=== PATIENT | male | born 1970 | race Two or more races ===

== ENCOUNTER 2021-06-13 13:19 | Inpatient (IN) | payer OTHER ==
[2021-06-13] MEDS ORDERED: BISMUTH SUBSALICYLATE 262 MG/15 ML BTL PO PRN (14:15)
[2021-06-13] MEDS ORDERED: ACETAMINOPHEN 325 MG TABLET (FP) PO PRN ×2 (14:15)
[2021-06-13] MEDS ORDERED: MAGNESIUM HYDROX 2400MG/30ML ORAL SUSPENSION 30 ML CUP PO PRN (14:15)
[2021-06-13] MEDS ORDERED: ONDANSETRON *ODT* 4 MG TABLET SL PRN (14:15)
[2021-06-13] MEDS ORDERED: MAGNESIUM CITRATE 300 ML BOTTLE PO PRN (14:15)
[2021-06-13] MEDS ORDERED: MENTHOL/PHENOL 1 EACH UD MM PRN (14:15)
[2021-06-13] MEDS ORDERED: chlordiazePOXIDE HCL 25 MG CAPSULE PO PRN (14:15)
[2021-06-13] MEDS ORDERED: MAG HYDROX/AL HYDROX/SIMETH 30 ML UNIT-DOSE CUP PO PRN (14:15)
[2021-06-13] MEDS ORDERED: NICOTINE 10 MG CARTRIDGE (INHALER) IH PRN (14:15)
[2021-06-13] MEDS ORDERED: IBUPROFEN 400 MG TABLET (FP) PO PRN (14:15)
[2021-06-13 14:24] VITALS: BMI 44.1
[2021-06-13] MEDS: chlordiazePOXIDE HCL 25 MG CAPSULE PO SCH ×2 (17:28→22:29)
[2021-06-13] MEDS: hydrOXYzine PAMOATE 25 MG CAPSULE (FP) PO SCH ×2 (17:28→22:27)
[2021-06-13] MEDS: THIAMINE HCL 100 MG TABLET (FP) PO SCH (22:27)
[2021-06-13] MEDS: MELATONIN 5 MG TABLETS PO SCH (22:27)
[2021-06-14] MEDS: hydrOXYzine PAMOATE 25 MG CAPSULE (FP) PO SCH ×5 (05:47→22:03)
[2021-06-14] MEDS: chlordiazePOXIDE HCL 25 MG CAPSULE PO SCH ×4 (05:48→22:03)
[2021-06-14 09:34] LABS: HEMATOCRIT 40.9 % (35.4-49); HEMOGLOBIN 13.7 GM/dL (11.7-16.9); MCH 29.7 pg (25.7-33.7); MCHC 33.4 g/dl (32.0-35.9); MEAN CELL VOLUME 88.7 fl (80-96); MEAN PLT VOLUME 8.1 fl (7.5-11.1); PLATELET COUNT 298 10^3/uL (134-434); RBC 4.61 M/mm3 (4.00-5.60); RDW 13.6 % (11.9-15.9); WHITE BLOOD COUNT 6.9 K/mm3 (4.0-10.0)
[2021-06-14] MEDS: PRENATAL VITAMINS W/ FOLIC ACID TABLET (FP) PO SCH (10:19)
[2021-06-14 10:34] LABS: ALBUMIN 3.2 g/dl (3.4-5.0); CALCIUM 9.3 mg/dL (8.5-10.1)
[2021-06-14 10:35] LABS: BLOOD UREA NITROGEN 12.3 mg/dL (7-18)
[2021-06-14 10:37] LABS: CREATININE 0.9 mg/dL (0.55-1.3)
[2021-06-14 10:39] LABS: TOT PROT 6.6 g/dl (6.4-8.2)
[2021-06-14] MEDS: metFORMIN HCL 500 MG TABLET (FP) PO SCH ×2 (11:40→17:20)
[2021-06-14] MEDS: glipiZIDE 5 MG TABLET (FP) PO SCH (11:40)
[2021-06-14] MEDS: ASPIRIN 81 MG CHEWABLE TABLETS PO SCH (11:40)
[2021-06-14] MEDS ORDERED: PATIENT'S OWN MEDICATION (NON-FORMULARY) (Semaglutide [Ozempic] 1 MG/0.75 ML Pen.Injctr) SQ SCH (12:00)
[2021-06-14] MEDS ORDERED: SEMAGLUTIDE SQ SCH (13:06)
[2021-06-14] MEDS ORDERED: [UNRECOGNIZED DRUG - OTHER] SQ SCH (13:06)
[2021-06-14] MEDS ORDERED: NIFEdipine E.R 60 MG TABLET PO SCH (13:15)
[2021-06-14] MEDS: NIFEdipine E.R 60 MG TABLET PO SCH (17:24)
[2021-06-14] MEDS: MELATONIN 5 MG TABLETS PO SCH (22:03)
[2021-06-14] MEDS: THIAMINE HCL 100 MG TABLET (FP) PO SCH (22:03)
[2021-06-15] MEDS: chlordiazePOXIDE HCL 25 MG CAPSULE PO SCH ×4 (05:59→22:02)
[2021-06-15] MEDS: hydrOXYzine PAMOATE 25 MG CAPSULE (FP) PO SCH ×5 (05:59→22:03)
[2021-06-15] MEDS: glipiZIDE 5 MG TABLET (FP) PO SCH (06:00)
[2021-06-15] MEDS: metFORMIN HCL 500 MG TABLET (FP) PO SCH ×2 (06:00→18:45)
[2021-06-15] MEDS: ASPIRIN 81 MG CHEWABLE TABLETS PO SCH (10:25)
[2021-06-15] MEDS: NIFEdipine E.R 60 MG TABLET PO SCH (10:25)
[2021-06-15] MEDS: PRENATAL VITAMINS W/ FOLIC ACID TABLET (FP) PO SCH (10:25)
[2021-06-15] MEDS: THIAMINE HCL 100 MG TABLET (FP) PO SCH (22:03)
[2021-06-15] MEDS: METHOCARBAMOL 500 MG TABLET PO PRN (22:03)
[2021-06-15] MEDS: MELATONIN 5 MG TABLETS PO SCH (22:03)
[2021-06-16] MEDS ORDERED: chlordiazePOXIDE HCL 10 MG CAPSULE PO PRN
[2021-06-16] MEDS: chlordiazePOXIDE HCL 10 MG CAPSULE PO SCH ×4 (05:56→22:14)
[2021-06-16] MEDS: hydrOXYzine PAMOATE 25 MG CAPSULE (FP) PO SCH ×5 (05:56→22:15)
[2021-06-16] MEDS: metFORMIN HCL 500 MG TABLET (FP) PO SCH ×2 (07:05→18:23)
[2021-06-16] MEDS: glipiZIDE 5 MG TABLET (FP) PO SCH (08:15)
[2021-06-16] MEDS: ASPIRIN 81 MG CHEWABLE TABLETS PO SCH (10:24)
[2021-06-16] MEDS: PRENATAL VITAMINS W/ FOLIC ACID TABLET (FP) PO SCH (10:25)
[2021-06-16] MEDS: NIFEdipine E.R 60 MG TABLET PO SCH (10:28)
[2021-06-16] MEDS ORDERED: SENNOSIDES 8.6MG TABLET (FP) PO PRN (12:25)
[2021-06-16] MEDS: INSULIN SLIDING SCALE (NOVOLOG) 1 VIAL SQ SCH (17:17)
[2021-06-16] MEDS: METHOCARBAMOL 500 MG TABLET PO PRN (22:14)
[2021-06-16] MEDS: MELATONIN 5 MG TABLETS PO SCH (22:14)
[2021-06-17] MEDS: THIAMINE HCL 100 MG TABLET (FP) PO SCH ×2 (00:57→22:05)
[2021-06-17] MEDS: chlordiazePOXIDE HCL 10 MG CAPSULE PO SCH ×2 (06:03→17:39)
[2021-06-17] MEDS: metFORMIN HCL 500 MG TABLET (FP) PO SCH ×2 (06:07→17:15)
[2021-06-17] MEDS: glipiZIDE 5 MG TABLET (FP) PO SCH (06:07)
[2021-06-17] MEDS: hydrOXYzine PAMOATE 25 MG CAPSULE (FP) PO SCH ×5 (06:07→22:05)
[2021-06-17] MEDS: INSULIN SLIDING SCALE (NOVOLOG) 1 VIAL SQ SCH ×2 (07:14→17:17)
[2021-06-17] MEDS: ASPIRIN 81 MG CHEWABLE TABLETS PO SCH (10:56)
[2021-06-17] MEDS: PRENATAL VITAMINS W/ FOLIC ACID TABLET (FP) PO SCH (10:56)
[2021-06-17] MEDS: NIFEdipine E.R 60 MG TABLET PO SCH (10:57)
[2021-06-17] MEDS: MELATONIN 5 MG TABLETS PO SCH (22:05)
[2021-06-17] MEDS: METHOCARBAMOL 500 MG TABLET PO PRN (22:05)
[2021-06-18] MEDS ORDERED: chlordiazePOXIDE HCL 10 MG CAPSULE PO ONE (05:00)
[2021-06-18] MEDS: metFORMIN HCL 500 MG TABLET (FP) PO SCH (06:01)
[2021-06-18] MEDS: glipiZIDE 5 MG TABLET (FP) PO SCH (06:01)
[2021-06-18] MEDS: hydrOXYzine PAMOATE 25 MG CAPSULE (FP) PO SCH ×2 (06:01→09:04)
[2021-06-18] MEDS: INSULIN SLIDING SCALE (NOVOLOG) 1 VIAL SQ SCH (06:07)
[2021-06-18] MEDS: ASPIRIN 81 MG CHEWABLE TABLETS PO SCH (09:04)
[2021-06-18] MEDS: PRENATAL VITAMINS W/ FOLIC ACID TABLET (FP) PO SCH (09:04)
[2021-06-18] MEDS: NIFEdipine E.R 60 MG TABLET PO SCH (09:04)
[2021-06-18 09:08] VITALS: BP 147/87; PULSE 83; TEMP 97.1
== END 2021-06-18 09:55 | disposition home or self-care (01) | DRG 775 ==
LOC: YASAS 13:19 → Y3N 15:11
PROVIDERS: ADMIT Allergy & Immunology; ATTEND Allergy & Immunology
PROC: HZ2ZZZZ Detoxification Services for Substance Abuse Treatment (ICD-10-PCS; principal; 2021-06-13)
DX: F10.230 Alcohol dependence with withdrawal, uncomplicated (principal); F13.20 Sedative, hypnotic or anxiolytic dependence, uncomplicated; F17.210 Nicotine dependence, cigarettes, uncomplicated; I10 Essential (primary) hypertension; E11.9 Type 2 diabetes mellitus without complications; Z79.84 Long term (current) use of oral hypoglycemic drugs; Z79.899 Other long term (current) drug therapy; R74.01 Elevation of levels of liver transaminase levels
CPT/HCPCS: 36415; 80053; 82962; 85027; 86780; 93005; 93010; C9803; U0003; U0005

== ENCOUNTER 2021-08-21 13:26 | Inpatient (IN) | payer OTHER ==
[2021-08-21] MEDS ORDERED: IBUPROFEN 400 MG TABLET (FP) PO PRN (16:14)
[2021-08-21] MEDS ORDERED: chlordiazePOXIDE HCL 25 MG CAPSULE PO PRN (16:14)
[2021-08-21] MEDS ORDERED: ACETAMINOPHEN 325 MG TABLET (FP) PO PRN ×2 (16:14)
[2021-08-21] MEDS ORDERED: DICYCLOMINE HCL 10 MG CAPSULE PO PRN (16:14)
[2021-08-21] MEDS ORDERED: NICOTINE 10 MG CARTRIDGE (INHALER) IH PRN (16:14)
[2021-08-21] MEDS ORDERED: MAG HYDROX/AL HYDROX/SIMETH 30 ML UNIT-DOSE CUP PO PRN (16:14)
[2021-08-21] MEDS ORDERED: BISMUTH SUBSALICYLATE 524 MG/30 ML PO PRN (16:14)
[2021-08-21] MEDS ORDERED: METHOCARBAMOL 500 MG TABLET PO PRN (16:14)
[2021-08-21] MEDS ORDERED: LOPERAMIDE HCL 2 MG CAPSULE PO PRN (16:14)
[2021-08-21] MEDS ORDERED: ONDANSETRON *ODT* 4 MG TABLET SL PRN (16:14)
[2021-08-21] MEDS ORDERED: BENZOCAINE/MENTHOL (CHLORASEPTIC ) LOZENGE MM PRN (16:14)
[2021-08-21] MEDS ORDERED: MAGNESIUM HYDROX 2400MG/30ML ORAL SUSPENSION 30 ML CUP PO PRN (16:14)
[2021-08-21] MEDS ORDERED: MAGNESIUM CITRATE 300 ML BOTTLE PO PRN (16:14)
[2021-08-21 18:03] VITALS: BMI 44.1
[2021-08-21] MEDS: PRENATAL VITAMINS W/ FOLIC ACID TABLET (FP) PO SCH (19:41)
[2021-08-21] MEDS: INSULIN SLIDING SCALE (NOVOLOG) 1 VIAL SQ SCH (19:42)
[2021-08-21] MEDS: hydrOXYzine PAMOATE 25 MG CAPSULE (FP) PO SCH ×2 (20:35→22:04)
[2021-08-21] MEDS: THIAMINE HCL 100 MG TABLET (FP) PO SCH (22:02)
[2021-08-21] MEDS: chlordiazePOXIDE HCL 25 MG CAPSULE PO SCH (22:02)
[2021-08-21] MEDS: MELATONIN 5 MG TABLETS PO SCH (22:04)
[2021-08-22] MEDS: chlordiazePOXIDE HCL 25 MG CAPSULE PO SCH ×4 (05:23→22:03)
[2021-08-22] MEDS: hydrOXYzine PAMOATE 25 MG CAPSULE (FP) PO SCH ×5 (05:24→22:03)
[2021-08-22] MEDS: metFORMIN HCL 500 MG TABLET (FP) PO SCH ×2 (06:07→17:12)
[2021-08-22] MEDS: INSULIN SLIDING SCALE (NOVOLOG) 1 VIAL SQ SCH ×2 (07:00→17:17)
[2021-08-22] MEDS: ASPIRIN 81 MG CHEWABLE TABLETS PO SCH (10:49)
[2021-08-22] MEDS: PRENATAL VITAMINS W/ FOLIC ACID TABLET (FP) PO SCH (10:49)
[2021-08-22] MEDS: FOLIC ACID 1 MG TABLET (FP) PO SCH (11:19)
[2021-08-22] MEDS: glipiZIDE 5 MG TABLET (FP) PO SCH (11:19)
[2021-08-22] MEDS: NIFEdipine E.R 60 MG TABLET PO SCH (11:19)
[2021-08-22] MEDS: VALSARTAN 160 MG TABLET PO SCH (11:20)
[2021-08-22 14:16] LABS: HEMATOCRIT 41.4 % (35.4-49); HEMOGLOBIN 13.9 GM/dL (11.7-16.9); MCH 29.9 pg (25.7-33.7); MCHC 33.6 g/dl (32.0-35.9); PLATELET COUNT 295 10^3/uL (134-434); RBC 4.66 M/mm3 (4.00-5.60); RDW 13.3 % (11.9-15.9); WHITE BLOOD COUNT 7.6 K/mm3 (4.0-10.0)
[2021-08-22 14:35] LABS: ALBUMIN 3.2 g/dl (3.4-5.0); CALCIUM 9.3 mg/dL (8.5-10.1)
[2021-08-22 14:37] LABS: BLOOD UREA NITROGEN 13.4 mg/dL (7-18)
[2021-08-22 14:38] LABS: CREATININE 0.9 mg/dL (0.55-1.3)
[2021-08-22 14:40] LABS: BILIRUBIN,TOTAL 0.4 mg/dL (0.2-1); TOT PROT 6.9 g/dl (6.4-8.2)
[2021-08-22] MEDS: MELATONIN 5 MG TABLETS PO SCH (22:03)
[2021-08-22] MEDS: THIAMINE HCL 100 MG TABLET (FP) PO SCH (22:03)
[2021-08-23] MEDS: chlordiazePOXIDE HCL 25 MG CAPSULE PO SCH ×4 (05:48→22:04)
[2021-08-23] MEDS: hydrOXYzine PAMOATE 25 MG CAPSULE (FP) PO SCH ×5 (05:49→23:08)
[2021-08-23 06:07] LABS: SARS-CoV-2 NAA Not Detected (Not Detected)
[2021-08-23] MEDS: glipiZIDE 5 MG TABLET (FP) PO SCH (07:17)
[2021-08-23] MEDS: metFORMIN HCL 500 MG TABLET (FP) PO SCH ×2 (07:17→17:32)
[2021-08-23] MEDS ORDERED: INSULIN (NOVOLOG) ASPART 100 UNITS/ML 10ML VIAL ONE ×2 (07:30→17:25)
[2021-08-23] MEDS: INSULIN SLIDING SCALE (NOVOLOG) 1 VIAL SQ SCH ×2 (07:32→17:32)
[2021-08-23] MEDS: PRENATAL VITAMINS W/ FOLIC ACID TABLET (FP) PO SCH (10:42)
[2021-08-23] MEDS: VALSARTAN 160 MG TABLET PO SCH (10:42)
[2021-08-23] MEDS: ASPIRIN 81 MG CHEWABLE TABLETS PO SCH (10:42)
[2021-08-23] MEDS: FOLIC ACID 1 MG TABLET (FP) PO SCH (10:43)
[2021-08-23] MEDS: NIFEdipine E.R 60 MG TABLET PO SCH (10:43)
[2021-08-23] MEDS: traZODone HCL 50 MG TABLET (FP) PO SCH (22:04)
[2021-08-23] MEDS: THIAMINE HCL 100 MG TABLET (FP) PO SCH (22:04)
[2021-08-23] MEDS: MELATONIN 5 MG TABLETS PO SCH (23:07)
[2021-08-24] MEDS ORDERED: chlordiazePOXIDE HCL 10 MG CAPSULE PO PRN
[2021-08-24] MEDS ORDERED: guaiFENesin/D-METHORPHAN HB 10 ML UNIT-DOSE CUPS PO PRN (03:30)
[2021-08-24] MEDS: hydrOXYzine PAMOATE 25 MG CAPSULE (FP) PO SCH ×5 (06:03→23:37)
[2021-08-24] MEDS: chlordiazePOXIDE HCL 10 MG CAPSULE PO SCH ×4 (06:03→22:07)
[2021-08-24] MEDS: metFORMIN HCL 500 MG TABLET (FP) PO SCH ×2 (07:14→17:14)
[2021-08-24] MEDS: INSULIN SLIDING SCALE (NOVOLOG) 1 VIAL SQ SCH ×2 (07:14→17:15)
[2021-08-24] MEDS: glipiZIDE 5 MG TABLET (FP) PO SCH (07:14)
[2021-08-24] MEDS ORDERED: INSULIN (NOVOLOG) ASPART 100 UNITS/ML 10ML VIAL ONE ×2 (07:43→16:53)
[2021-08-24 10:15] LABS: SGOT/AST 44 U/L (15-37); SGPT/ALT 105 U/L (13-61)
[2021-08-24] MEDS: PRENATAL VITAMINS W/ FOLIC ACID TABLET (FP) PO SCH (10:46)
[2021-08-24] MEDS: FOLIC ACID 1 MG TABLET (FP) PO SCH (10:46)
[2021-08-24] MEDS: ASPIRIN 81 MG CHEWABLE TABLETS PO SCH (10:46)
[2021-08-24] MEDS: NIFEdipine E.R 60 MG TABLET PO SCH (10:46)
[2021-08-24] MEDS: VALSARTAN 160 MG TABLET PO SCH (10:47)
[2021-08-24] MEDS: THIAMINE HCL 100 MG TABLET (FP) PO SCH (22:07)
[2021-08-24] MEDS: traZODone HCL 50 MG TABLET (FP) PO SCH (22:07)
[2021-08-24] MEDS: MELATONIN 5 MG TABLETS PO SCH (23:36)
[2021-08-25] MEDS ORDERED: chlordiazePOXIDE HCL 10 MG CAPSULE PO SCH (05:00)
[2021-08-25] MEDS: hydrOXYzine PAMOATE 25 MG CAPSULE (FP) PO SCH ×2 (05:33→09:22)
[2021-08-25] MEDS: glipiZIDE 5 MG TABLET (FP) PO SCH (07:34)
[2021-08-25] MEDS: metFORMIN HCL 500 MG TABLET (FP) PO SCH (07:34)
[2021-08-25] MEDS: INSULIN SLIDING SCALE (NOVOLOG) 1 VIAL SQ SCH (07:34)
[2021-08-25] MEDS: PRENATAL VITAMINS W/ FOLIC ACID TABLET (FP) PO SCH (09:21)
[2021-08-25] MEDS: ASPIRIN 81 MG CHEWABLE TABLETS PO SCH (09:21)
[2021-08-25] MEDS: FOLIC ACID 1 MG TABLET (FP) PO SCH (09:21)
[2021-08-25] MEDS: NIFEdipine E.R 60 MG TABLET PO SCH (09:21)
[2021-08-25 09:22] VITALS: BP 142/71; PULSE 88; TEMP 97.8
[2021-08-25] MEDS: VALSARTAN 160 MG TABLET PO SCH (09:22)
[2021-08-26] MEDS ORDERED: chlordiazePOXIDE HCL 10 MG CAPSULE PO ONE (05:00)
[2021-08-28] MEDS ORDERED: ERGOCALCIFEROL (VIT D2) 50,000 UNIT (1.25 MG) CAPSULE PO SCH (10:00)
== END 2021-08-25 09:32 | disposition home or self-care (01) | DRG 774 ==
LOC: YASAS 13:26 → Y6N 18:20
PROVIDERS: ADMIT Allergy & Immunology; ATTEND Allergy & Immunology
PROC: HZ2ZZZZ Detoxification Services for Substance Abuse Treatment (ICD-10-PCS; principal; 2021-08-21)
DX: F10.230 Alcohol dependence with withdrawal, uncomplicated (principal); F14.20 Cocaine dependence, uncomplicated; F17.210 Nicotine dependence, cigarettes, uncomplicated; F19.282 Other psychoactive substance dependence with psychoactive substance-induced sleep disorder; F19.24 Other psychoactive substance dependence with psychoactive substance-induced mood disorder; F25.9 Schizoaffective disorder, unspecified; F43.10 Post-traumatic stress disorder, unspecified; I10 Essential (primary) hypertension; E11.9 Type 2 diabetes mellitus without complications; Z79.84 Long term (current) use of oral hypoglycemic drugs; Z79.899 Other long term (current) drug therapy; R74.01 Elevation of levels of liver transaminase levels; E66.01 Morbid (severe) obesity due to excess calories; Z68.41 Body mass index [BMI] 40.0-44.9, adult; Z86.69 Personal history of other diseases of the nervous system and sense organs
CPT/HCPCS: 36415; 80053; 82962; 84450; 84460; 85027; 86780; C9803-CS; U0003; U0005